=== PATIENT | female | born 1980 | race Caucasian/White ===

== ENCOUNTER 2024-12-30 16:19 | Outpatient (CLI) | payer MEDICAID, SELFPAY ==
--- NOTE | 2024-12-30 16:25 | XRR_ITS ---
PROCEDURE INFORMATION: Exam: XR Right Knee Exam date and time: 12/30/2024 4:33 PM Age: 44 years old Clinical indication: Injury or trauma; Blunt trauma; Right; Injury details: RT knee pain injured 2 years ago recent fall 4 weeks ago; Additional info: Acute right knee pain TECHNIQUE: Imaging protocol: Radiologic exam of the right knee. Views: 3 views. COMPARISON: No relevant prior studies available. FINDINGS: Bones/joints: Normal. No acute osseous, joint, or soft tissue abnormality. Mild medial compartment narrowing and spurring. Soft tissues: Normal. XR/XR knee RT 3V* [id number] IMPRESSION: No acute findings.
== END 2024-12-30 16:20 | disposition home or self-care (01) ==
LOC: RAD 16:22
PROVIDERS: Family Provider Family Medicine; PCP Family Medicine; Visit Provider Family Medicine
DX: M25.561 Pain in right knee (principal)
CPT/HCPCS: 73562; 80053; 80061; 84443; 85025

== ENCOUNTER → 2025-01-02 09:03 | Outpatient (BNVA) | payer MEDICAID, SELFPAY | PROVIDERS: Family Provider Family Medicine; PCP Family Medicine; Visit Provider Family Medicine | DX: Z13.6 Encounter for screening for cardiovascular disorders (principal) | CPT/HCPCS: 80053; 80061; 84443 ==

== ENCOUNTER → 2025-01-27 09:51 | Outpatient (BNVA) | payer MEDICAID, SELFPAY | PROVIDERS: Family Provider Family Medicine; PCP Family Medicine; Visit Provider Family Medicine | DX: Z01.419 Encounter for gynecological examination (general) (routine) without abnormal findings (principal) | CPT/HCPCS: 87624 ==

== ENCOUNTER 2025-01-28 09:08 | Outpatient (CLI) | payer MEDICAID, SELFPAY ==
--- NOTE | 2025-01-28 09:30 | MR_ITS ---
WS: [id number] MRI RIGHT KNEE HISTORY: acute right knee pain COMPARISON: Radiograph 12/30/2024 Anterior cruciate ligament: Intact. Posterior cruciate ligament: Intact. Medial collateral ligament: Fluid surrounding the mid to distal MCL. No tear identified. Posterior lateral corner structures: Intact. Medial menisci: Mild fraying along the superior articular surface of the posterior horn. No full-thickness tear. Seen best on the coronal imaging is linear increased T2 signal in the partially extruded meniscus consistent with a tear in the peripheral portion of the meniscus. Mild meniscal capsular sep aration. Lateral meniscus: Intact. Normal signal, size and shape. Extensor mechanism: Distal quadriceps tendon and patellar tendons are intact. Fluid and soft tissue: Small suprapatellar joint effusion. Small amount of edema along the anterior knee. No Lee's cyst. Osseous and articular structures: Patellofemoral compartment: Very slight lateral subluxation of the patella. Mild narrowing patellofemoral joint space. Mild diffuse chondromalacia. Subchondral cysts along the lateral patellar facet. Medial compartment: Moderate to severe narrowing of the medial compartment. Near bone upon bone with small marginal osteophytes. Subchondral cysts along the femoral condyle and tibial plateau. Subchondral cystic changes along the femoral condyle are associated with the superficial signal abnormality in the meniscus. Lateral compartment: Mild narrowing of the lateral compartment. Very small marginal osteophytes. MR/MR knee RT wo con* [id number] IMPRESSION: 1. Partially extruded medial meniscus from the joint line with a tear in the p eripheral body of the meniscus, seen best on the coronal T2 fat-saturated seque nce. 2. Additional surface fraying involving the superior articular surface posteri or horn medial meniscus. 3. 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 Closely associated with the surface fraying posterior horn medial meniscus . 4. Mild MCL sprain. 5. Mild patellofemoral joint space narrowing with slight lateral subluxation a nd mild diffuse chondromalacia. 6. Moderate to severe narrowing medial compartment with near bone upon bone an d marginal osteophytes. Small subchondral cyst along the femoral condyle and ti bial plateau articular surfaces. 7. Mild narrowing lateral compartment.
== END 2025-01-28 09:09 | disposition home or self-care (01) ==
LOC: RAD 09:10
PROVIDERS: Family Provider Family Medicine; PCP Family Medicine; Visit Provider Family Medicine
DX: M25.561 Pain in right knee (principal); R93.7 Abnormal findings on diagnostic imaging of other parts of musculoskeletal system; S83.221A Peripheral tear of medial meniscus, current injury, right knee, initial encounter; S83.411A Sprain of medial collateral ligament of right knee, initial encounter; X58.XXXA Exposure to other specified factors, initial encounter; M22.41 Chondromalacia patellae, right knee; M25.761 Osteophyte, right knee; M17.11 Unilateral primary osteoarthritis, right knee; M25.861 Other specified joint disorders, right knee
CPT/HCPCS: 73721

== ENCOUNTER 2025-01-30 09:07 | Outpatient (CLI) | payer MEDICAID, SELFPAY ==
--- NOTE | 2025-01-30 09:20 | MM_ITS ---
WS: [id number] BILATERAL SCREENING DIGITAL TOMOSYNTHESIS MAMMOGRAM WITH CAD HISTORY: screening COMPARISON: None available. Bilateral CC and MLO views with tomosynthesis and synthetic mammography submitted. Computer aided detection analyzed. Breast composition: The breasts are almost entirely fatty. No suspicious masses, microcalcifications or architectural distortion. Intramammary lymph node medial RIGHT breast. MM/MM scr BI tomosynthesis [id number] IMPRESSION: BI-RADS: 2 - Benign. FOLLOW UP: 1 Year Follow-up
== END 2025-01-30 09:08 | disposition home or self-care (01) ==
LOC: RAD 09:08
PROVIDERS: PCP Family Medicine; Visit Provider Family Medicine
DX: Z12.31 Encounter for screening mammogram for malignant neoplasm of breast (principal); N63.10 Unspecified lump in the right breast, unspecified quadrant; R92.313 Mammographic fatty tissue density, bilateral breasts
CPT/HCPCS: 77063; 77067

== ENCOUNTER → 2025-01-31 11:46 | Outpatient (BNVA) | payer MEDICAID, SELFPAY | PROVIDERS: PCP Family Medicine; Visit Provider Emergency Medicine | DX: R05.9 Cough, unspecified (principal) | CPT/HCPCS: 87426 ==